=== PATIENT | female | born 1995 | race Caucasian/White ===

== ENCOUNTER 2023-03-10 09:22 | Emergency (ER) | payer MEDICAID ==
[~2023-03-10] VITALS: Ht 160 cm; Wt 72.6 kg
[2023-03-10 09:31] VITALS: BP 105/60; PULSE 92; RESP 16; TEMP 99.4; O2SAT 98
[2023-03-10 09:54] VITALS: BP 104/59; PULSE 92; RESP 16; TEMP 98.3; O2SAT 98
[2023-03-10] MEDS ORDERED: MECL-303 PO (10:10)
== END 2023-03-10 10:44 | disposition home or self-care (01) ==
LOC: MED 09:22
DX: H81.399 Other peripheral vertigo, unspecified ear (principal); R53.1 Weakness
CPT/HCPCS: 81002; 81025; 99282